=== PATIENT | male | born 1950 | race Caucasian/White ===

== ENCOUNTER 2022-09-02 11:34 | Outpatient (CLI) | payer MEDICARE, SELFPAY ==
--- NOTE | ~2022-09-02 | XR_ITS ---
XR_[id number]_CR 09/02/2022 11:52 Indication: Neck pain. Procedure: 3 views cervical spine Comparison: No prior studies for comparison. Findings: There is disc narrowing at C4-5 and C5-6. There are ventral osteophytes at multiple levels. There is multilevel facet and uncinate hypertrophy. There is no prevertebral soft tissue abnormality . Odontoid process is normal. Lateral masses normally aligned. There is carotid atherosclerosis. Impression: 1: Moderate cervical spondylosis. Reviewed, dictated and finalized at location L. Impression: 1: Moderate cervical spondylosis.
== END 2022-09-02 11:35 | disposition home or self-care (01) ==
LOC: CHSIMG 11:40
PROVIDERS: PCP Family Medicine; Visit Provider Family Medicine
DX: R20.0 Anesthesia of skin (principal); M43.02 Spondylolysis, cervical region
CPT/HCPCS: 72040

== ENCOUNTER 2024-02-29 14:58 | Outpatient (CLI) | payer MEDICARE, SELFPAY ==
--- NOTE | ~2024-02-29 | XR_ITS ---
CHEST RADIOGRAPH CLINICAL HISTORY: PNEUMONIA . COMPARISON: None available TECHNIQUE: Single portable view of the chest. FINDINGS Sternal wires and mediastinal clips are identified, the wires are midline and primarily intact. Coronary artery orifice markers are identified anteriorly. The remainder of the cardiomediastinal silhouette is enlarged, but otherwise unremarkable. Blunting of the left costophrenic sulcus suggesting a small left-sided pleural effusion. The lungs are otherwise clear. Visualized osseous structures and soft tissues are unremarkable. IMPRESSION: Small left-sided pleural effusion without focal infiltrate. Reviewed, dictated and finalized at location A.
== END 2024-02-29 14:59 | disposition home or self-care (01) ==
LOC: CHSIMG 15:02
PROVIDERS: PCP Family Medicine; Visit Provider Family Medicine
DX: J18.9 Pneumonia, unspecified organism (principal); J90 Pleural effusion, not elsewhere classified
CPT/HCPCS: 71046

== ENCOUNTER 2024-06-29 15:16 | Outpatient (CLI) | payer MEDICARE, SELFPAY ==
--- NOTE | ~2024-06-29 | XR_ITS ---
CHEST RADIOGRAPH, PA AND LATERAL CLINICAL HISTORY: Dyspnea,NOCTURAL SOB,HEART SURG X6MO AGO-EFRAÍN [facility] E[facility] SINCE . COMPARISON: 02/29/2024 TECHNIQUE: PA and lateral views of the chest. FINDINGS Sternal wires and mediastinal clips are identified, the wires are midline and intact. The remainder of the cardiomediastinal silhouette is enlarged, unchanged. Interval resolution of the left-sided pleural effusion seen on 02/29/2024. The lungs are now clear. IMPRESSION: Cardiomegaly, without focal infiltrate or effusion. Reviewed, dictated and finalized at location A. STITCH WAISTBAND SETTER
--- OUTSIDE RECORDS SUMMARY | 2024-06-29 15:49 | XMS_ITS | Encounter Summary ---
Author Organization [facility] Address [facility] [place] [address] Care Team Providers Care Chargeback Analyst Name Role Phone Matthew Bell MD Primary Care Provider Aguilar Coppola MD Primary Care Provider [phone] Hay Choudhury MD Unavailable [phone] Layo Greer MD Unavailable [phone] Encounter Details Date Type Department Care Team (Late st Contact Info) Description 10/30/2018 Abstract [facility]FL CONVERSION [address] [place] [address] , Generic ConversionMD Social History Tobacco Use Types Packs/Day Years Used Date Smoking Tobacco: Never Assessed Sex and Gender Information Value Date Recorded Sex Assigned at Not on file Legal Sex Male 5:44 PM SEAFOOD SPECIALIST Gender Identity Male 06/11/2021 7:40 AM SEAFOOD SPECIALIST Sexual Orientation Straight 06/11/2021 7: 40 AM SEAFOOD SPECIALIST documented as of this encounter Plan of Treatment Upcoming Encounters Date Type Department Care Team (Late st Contact Info) Description 07/19/2024 11:30 AM SEAFOOD SPECIALIST Office Visit [facility] [address] [place] [address] Hay Choudhury MD [address] [facility] [address] [address] documented as of this encounter Visit Diagnoses Not on filedocumented in this encounter Additional Health Concerns Infection Onset Date Last Indicated Resolved Time COVID-19 Rule Out 12/08/2023 12/08/2023 12/08/2023 7:08 AM CDT documented as of this encounter Care Teams Chargeback Analyst Relationship Specialty Start Date End Date Matthew Bell MD PCP - General FAMILY PRACTICE 11/20/20 12/07/23 Aguilar Coppola MD [address] [place] [address] PCP - General FAMILY PRACTICE 12/08/23 Hay Choudhury MD [address] [place] [address] [phone] Consulting Physician CLINICAL CARDIAC ELECTROPHYSIOLOGY 12/31/23 Layo Greer MD [address] [place] [phone] Consulting Physician INTERVENTIONAL CARDIOLOGY 02/09/24 documented as of this encounter
--- OUTSIDE RECORDS SUMMARY | 2024-06-29 15:49 | XMS_ITS | Clinical Summary ---
Author Organization [facility] Address [address] [place] [address] Care Team Providers Care Pharmacist Per Diem Name Role Phone Aguilar Coppola MD Primary Care Provider [phone] Hay Choudhury MD Unavailable [phone] Layo Greer MD Unavailable [phone] Allergies No known active allergies Medications tamsulosin (FLOMAX) 0.4 MG CapIndications:p rostate Take 1 capsule (0.4 mg total) by mouth daily. Indications: prostate 02/27/20 22 Active finasteride (PROSCAR) 5 MG tabletIndication s:prostate Take 1 tablet (5 mg total) by mouth daily. Indications: prostate 05/27/19 23 Active clopidogrel (PLAVIX) 75 MG tabletIndication s:anticoagulatio n Take 1 tablet (75 mg total) by mouth daily. Indications: anticoagulation Active atorvastatin (LIPITOR) 40 MG tabletIndication s:cholesterol Take 1 tablet (40 mg total) by mouth nightly at bedtime. 90 tablet 12/22/19 24 Active metoprolol tartrate (LOPRESSOR) 25 MG tabletIndication s:heart Take 0.5 tablets (12.5 mg total) by mouth 2 (two) times daily. 60 tablet 12/22/19 24 Active senna-docusate (SENOKOT-S) 8.6-50 MG tabletIndication s:constipation Take 1 tablet by mouth 2 (two) times daily. Continue as needed for constipation 14 tablet 12/22/19 24 Active traMADol (ULTRAM) 50 MG tabletIndication s:Acute Pain < 7 Day Supply Take 1 tablet (50 mg total) by mouth every 6 (six) hours as needed. Indications: Acute Pain < 7 Day Supply 15 tablet 12/22/19 24 Active metFORMIN (GLUCOPHAGE) 500 MG tabletIndication s:diabetes Take 1 tablet (500 mg total) by mouth 2 (two) times daily with meals. Indications: diabetes 12/22/19 24 Active acetaminophen (TYLENOL) 500 MG tabletIndication s:Pain Take 1 tablet (500 mg total) by mouth every 6 (six) hours as needed for Pain. Indications: Pain 01/02/20 24 Active POLYETHYLENE GLYCOL 3350 ORIndications:Co nstipation Take 17 g by mouth daily as needed (Contipation). Indications: Constipation 01/07/20 24 Active losartan-hydroCH LOROthiazide (HYZAAR) 100-25 MG tablet Take 1 tablet by mouth daily. 12/22/19 24 Active furosemide (LASIX) 40 MG tablet Take 1 tablet (40 mg total) by mouth daily. 90 tablet 3 02/17/20 24 Active VENTOLIN HFA 108 (90 Base) MCG/ACT inhaler Inhale 2 puffs into the lungs every 6 (six) hours as needed. 02/29/20 24 Active YANIRA Freeman, (MEDROL DOSEPAK) 4 MG tablet take by mouth as directed on inside of package 02/29/20 24 Active warfarin (COUMADIN) 3 MG tabletIndication s:Paroxysmal atrial fibrillation ([facility]) Take 1 tablet (3 mg total) by mouth daily. 30 tablet 5 03/04/20 24 Active Active Problems Problem Noted Date Diagnosed Date Mixed hyperlipidemia 01/26/2024 S/P CABG (coronary artery bypass graft) 01/20/20 24 NSTEMI (non-ST elevated myoc ardial infarction) ([facility]) 01/20/2024 Coronary artery disease invo lving [place] coronary artery of [place] heart 01/20/2024 Paroxysmal atrial fibrillation ([facility]) 01/20/2024 Primary hypertension 01/20/2024 Type 2 diabetes mellitus, wi out long-term current use of insulin ([facility]) 01/20/2024 Acute exacerbation of CHF (c ongestive heart failure) ([facility]) 12/08/2023 Social History Tobacco Use Types Packs/Day Years Used Date Smoking Tobacco: Every Day Cigarettes Smokeless Tobacco: Never Tobacco Cessation:Ready to Q uit: Not Asked; Counseling Given: Not Answered Alcohol Use Standard Drinks/Week Comments Not Currently 0 (1 standard drink = 0.6 oz pur e alcohol) OASIS D0700: Social Isolation Answer Da te Recorded Frequency of experiencing loneliness or isolatio n Never 02/11/2024 OASIS A1250: Transportation Answer Date Recorded Lack of Transportation (Medical) No 02/11/2024 Lack of Transportation (Non-Medical) No 02/11/2024 Patient Unable or Declines to Respond No 02/11/2024 OASIS B1300: Health Literacy Answer Miguel A e Recorded Frequency of needing help to read materials from doctor or pharmacy Never 02/11/2024 [facility] Utilities Answer Date Recorded In the past 12 months has e [employer], gas, oil, or water [employer] threatened to shut off services in your home? No 12/08/2023 Humiliation, Afraid, Rape, and Kick questionnair e Answer Date Recorded Within the last year, have y ou been afraid of your partner or ex-partner? No 12/08/2023 Within the last year, have y ou been humiliated or emotionally abused in other ways by your partner or ex-partner? No Within the last year, have y ou been kicked, hit, slapped, or otherwise physically hurt by your partner or ex-partner? No 12/08/2023 Within the last year, have y ou been raped or forced to have any kind of sexual activity by your partner or ex-partner? No 12/08/2023 Overall Financial Resource Strain (CARDIA) Answe r Date Recorded How hard is it for you to pa y for the very basics like food, housing, medical care, and heating? Not hard at all 12/08/2023 Hunger Vital Sign Answer Date Recorded Within the past 12 months, y ou worried that your food would run out before you got the money to buy more. Never true 12/08/19 24 Within the past 12 months, t he food you bought just didn't last and you didn't have money to get more. Never true 12/08/2023 PRAPARE - Transportation Answer Date Re corded In the past 12 months, has l ack of transportation kept you from medical appointments or from getting medications? No 11/22 In the past 12 months, has l ack of transportation kept you from meetings, work, or from getting things needed for daily living? No 12/08/2023 Housing Stability Vital Sign Answer Miguel A e Recorded In the last 12 months, was t here a time when you were not able to pay the mortgage or rent on time? No 12/08/2023 In the past 12 months, how m any times have you moved where you were living? 1 12/08/2023 At any time in the past 12 m [facility], were you homeless or living in a chcf (including now)? No 12/08/2023 Sex and Gender Information Value Date Recorded Sex Assigned at Not on file Legal Sex Male 5:44 PM SALES CONSULTING DIRECTOR Gender Identity Male 06/11/2021 7:40 AM SALES CONSULTING DIRECTOR Sexual Orientation Straight 06/11/2021 7: 40 AM SALES CONSULTING DIRECTOR Last Filed Vital Signs Vital Sign Reading Time Taken Comments Blood Pressure 143/79 03/02/2024 4:00 PM CDT Pulse 98 03/02/2024 2:01 PM CDT Temperature 36.5 C (97.7 F) 03/02/2024 2:01 PM CDT Respiratory Rate 18 03/02/2024 2:01 PM CDT Oxygen Saturation 95% 03/02/2024 4:00 PM CDT Inhaled Oxygen Concentration - - Weight 99.4 kg (219 lb 2 oz) 03/02/2024 2:01 PM CDT Height 172.7 cm (5' 8 ) 03/02/2024 2:01 PM CDT Body Mass Index 33.32 03/02/2024 2:01 PM CDT Plan of Treatment Upcoming Encounters Date Type Department Care Team (Late st Contact Info) Description 07/19/2024 11:30 AM SALES CONSULTING DIRECTOR Office Visit [facility] [address] [place] [address] Hay Choudhury MD [address] [facility] [address] [address] Health Maintenance Due Date Last Done Comments Colorectal Cancer Screening Colonoscopy (10 Years) 1950 Kidney Health Evaluation 1950 Pneumococcal Vaccine: 65+ Ye ars (1 of 2 - PCV) 1956 Diabetes: Retinopathy Eye Exam 1968 Hepatitis C 1968 DTaP, Tdap and Td Vaccines ( 1 - Tdap) 1969 Zoster Vaccines (1 of 2) 2000 RSV Immunization or 60+ Years (1 - Risk 60-74 years 1-dose series) 2010 Annual Medicare Wellness Visit 2015 COVID-19 Vaccine (1 - 2023-2 5 season) 2024 Influenza Adult (#1) 2024 Hemoglobin A1C 06/12/2024 12/11/2023 Lipid Panel 12/10/2024 12/11/2023 AAA SCREENING Completed 05/21/2022 Meningococcal B Vaccine Aged Out No l onger eligible based on patient's age to complete this topic Meningococcal Vaccine Aged Out No benson brianna eligible based on patient's age to complete this topic RSV Immunizations Under 20 Months Aged Out No longer eligible based on patient's age to complete this topic Goals Goal Patient Goal Type Associated Problems Recent Progress Patient-Stated? Author Patient will return to prior living situation and remain independent in ADLs upon discharge from hospital Lifestyle No Adelaide Agosto RN Procedures Procedure Name Priority Date/Time Associated Diagnosis Comments LIPID PANEL Routine 12/11/2023 4:44 AM CDT HEMOGLOBIN, GLYCOSYLATED Routine 12/11/2023 4:[address] ABD+PEL WO CON STAT 05/21/2022 12: 51 PM SALES CONSULTING DIRECTOR from Last 3 Months or Most Recently Relevant to Health Maintenance Results * (ABNORMAL) HEMOGLOBIN, GLYCOSYLATED (12/11/2023 4:44 AM CDT) HGB A1C 6.7(H) <5.7 % 12/11/2023 3:36 PM CDT [facility] ESTIMATED AVG GLUCOSE 146(H) 74 - 114 MG/DL 12/11/2023 3:36 PM CDT [facility] 12/11/2023 4:44 AM CDT Liss Muñoz NP LABORATORY Final Result Performing Organization Address [facility]/ZIP Co de Phone Number [facility] [address] [place] [address], [id number] * LIPID PANEL (12/11/2023 4:44 AM CDT) CHOLESTEROL 165 MG/DL 12/11/2023 2:39 PM CDT [facility] Comment:DESIRABLE: <200 TRIGLYCERIDES 129 MG/DL 12/11/2023 2:39 PM CDT [facility] Comment:<150 NORMAL HDL 66 >39 MG/DL 12/11/2023 2:39 PM CDT [facility] LDL (CALCULATED) 73 MG/DL 12/11/19 24 2:39 PM CDT [facility] Comment:<100 OPTIMAL VLDL CALCULATION 26 MG/DL 12/11/19 24 2:39 PM CDT [facility] Comment:REFERENCE RANGE NOT ESTABLISHED CHOL/HDL RATIO 2.5 12/11/2023 2:39 PM CDT [facility] Comment:REFERENCE RANGE NOT ESTABLISHED LDL/HDL 1.1 12/11/2023 2:39 PM CDT [facility] Comment:REFERENCE RANGE NOT ESTABLISHED NON HDL CHOLESTEROL 99 MG/DL 12/11/2023 2:39 PM CDT [facility] Comment:REFERENCE RANGE NOT ESTABLISHED 12/11/2023 4:44 AM CDT Kee López MD LABORATORY Final Res ult Performing Organization Address [facility]/ZIP Co de Phone Number [facility] [address] [place] [address], [phone] * CT ABD+PEL WO CON (05/21/2022 12:51 PM SALES CONSULTING DIRECTOR) Anatomical Region Laterality Modality Abdomen Computed Tomogra phy 05/21/2022 1:00 PM SALES CONSULTING DIRECTOR Impressions 05/21/2022 1:10 PM SALES CONSULTING DIRECTOR IMPRESSION: 1. Mild left hydronephrosis, likely physiologic renal, ureteric or bladder stones identified. 2. Nonspecific bilateral nephric fat stranding, left greater than right. Complete evaluation of the renal parenchyma is limited on this noncontrast CT. Correlation with urinalysis is recommended to exclude the possibility of pyelonephritis. 3. No CT evidence of bowel obstruction or acute appendicitis. 4. Severe prostatomegaly. 5. Small hiatal hernia. Ordered By: AUGUSTIN DUNLAP Interpreted By: Emmanuel Mckeon MD, 05/21/2022 1:00 PM Narrative 05/21/2022 1:10 PM SALES CONSULTING DIRECTOR PROCEDURE: CT ABD+PEL WO CON HISTORY: Nausea and vomiting. TECHNIQUE: Helical CT of the abdomen and pelvis was performed without intravenous contrast. A dose lowering technique was used for this procedure, which may include, but is not limited to, dose reduction technique, automated exposure control, the use of iterative reconstruction, and ALARA (As Low As Reasonably Achievable) / Image Gently techniques. COMPARISON: The lung screening, 03/14/2022. FINDINGS CT ABDOMEN/PELVIS: Lower thorax: There is subsegmental atelectasis in the lower lobes. The heart is normal in size. Small hiatal hernia. Liver: unremarkable Biliary tree: The gallbladder is present. There is no biliary ductal dilatation. Spleen: The spleen is normal in size. Calcifications are seen in the spleen, consistent with old granulomatous disease. Pancreas: Unremarkable. Adrenal glands: Unremarkable. Kidneys: There is no right hydronephrosis. Mild left hydronephrosis No renal or ureteric stones are seen. There is also bilateral perinephric fat stranding, left greater than right. Lymph nodes: Abdomen: There is no abdominal adenopathy. Pelvis: There is no pelvic adenopathy. Vasculature: There is no abdominal aortic aneurysm. Atherosclerotic calcification is seen. Peritoneum/mesentery/omentum: There is no free fluid or free air. GI tract: There is no bowel obstruction. The appendix normal. There is no bowel bowel wall thickening to suggest acute inflammation. Pelvic urogenital structures:There is a Eubanks catheter in a collapsed bladder. The prostate is markedly enlarged measuring up to 7.5 cm in the transverse dimension Body wall: There are degenerative changes in the spine. No aggressive osseous lesions identified. Limitations: Evaluation of the solid parenchymal organs and vasculature is limited due to lack of intravenous contrast. Calix: (S/I) = series number / image number Procedure Note Emmanuel Mckeon MD - 05/21/2022 PROCEDURE: CT ABD+PEL WO CON HISTORY: Nausea and vomiting. TECHNIQUE: Helical CT of the abdomen and pelvis was performed withoutintravenous contrast. A dose lowering technique was used for this procedure, which may include,but is not limited to, dose reduction technique, automated exposurecontrol, the use of iterative reconstruction, and ALARA (As Low AsReasonably Achievable) / Image Gently techniques. COMPARISON: The lung screening, 03/14/2022. FINDINGS CT ABDOMEN/PELVIS: Lower thorax: There is subsegmental atelectasis in the lower lobes. Theheart is normal in size. Small hiatal hernia. Liver: unremarkable Biliary tree: The gallbladder is present. There is no biliary ductaldilatation. Spleen: The spleen is normal in size. Calcifications are seen in thespleen, consistent with old granulomatous disease. Pancreas: Unremarkable. Adrenal glands: Unremarkable. Kidneys: There is no right hydronephrosis. Mild left hydronephrosis Norenal or ureteric stones are seen. There is also bilateral perinephric fatstranding, left greater than right. Lymph nodes: Abdomen: There is no abdominal adenopathy. Pelvis: There is no pelvic adenopathy. Vasculature: There is no abdominal aortic aneurysm. Atheroscleroticcalcification is seen. Peritoneum/mesentery/omentum: There is no free fluid or free air. GI tract: There is no bowel obstruction. The appendix normal. There is nobowel bowel wall thickening to suggest acute inflammation. Pelvic urogenital structures:There is a Eubanks catheter in a collapsedbladder. The prostate is markedly enlarged measuring up to 7.5 cm in thetransverse dimension Body wall: There are degenerative changes in the spine. No aggressiveosseous lesions identified. Limitations: Evaluation of the solid parenchymal organs and vasculature islimited due to lack of intravenous contrast. Calix: (S/I) = series number / image number IMPRESSION: 1. Mild left hydronephrosis, likely physiologic renal, ureteric orbladder stones identified. 2. Nonspecific bilateral nephric fat stranding, left greater than right.Complete evaluation of the renal parenchyma is limited on this noncontrastCT. Correlation with urinalysis is recommended to exclude the possibilityof pyelonephritis. 3. No CT evidence of bowel obstruction or acute appendicitis. 4. Severe prostatomegaly. 5. Small hiatal hernia. Ordered By: AUGUSTIN DUNLAP Interpreted By: Emmanuel Mckeon MD, 05/21/2022 1:00 PM Augustin Dunlap MD CT Final Result from Last 3 Months or Most Recently Relevant to Health Maintenance Insurance [place] Advance Directives * Full Code (Latest Code Status on File) Date Activated Date Inactivated Comments 12/28/2023 10:31 AM 03/02/2024 1:54 PM * Full Code Date Activated Date Inactivated Comments 12/23/2023 3:28 PM 12/28/2023 8:54 AM * Full Code Date Activated Date Inactivated Comments 12/18/2023 12:06 PM 12/22/2023 6:36 PM * Full Code Date Activated Date Inactivated Comments 12/08/2023 11:23 AM 12/18/2023 12:06 PM Care Teams Pharmacist Per Diem Relationship Specialty Start Date End Date Aguilar Coppola MD [address] [place] [address] PCP - General FAMILY PRACTICE 12/08/23 Hay Choudhury MD [address] [place] [address] [phone] Consulting Physician CLINICAL CARDIAC ELECTROPHYSIOLOGY 12/31/23 Layo Greer MD [address] [place] [phone] Consulting Physician INTERVENTIONAL CARDIOLOGY 02/09/24
--- OUTSIDE RECORDS SUMMARY | 2024-06-29 15:49 | XMS_ITS | Data Portability ---
Author Organization [facility], [address] [facility] Neurology ([place]) Address [address] [place] [address] Care Team Providers Care Detention Sergeant Name Role Phone KRISH TAMAYO Hematology/Oncology DALALS BRIGGS Primary Care Provider JUSTYNA SANTOS Referring Provider Assessment Encounter Date Assessment Date Assessment LastModified by Organization Details LastModified Time 12/29/2023 12/29/2023 HISTORY: This 73-year-old man is seen for evaluation of an elevated white blood count. The patient states that he was found to have an elevated PSA in May 2022 associated with difficulty with urination. He underwent placement of a urinary catheter but a urologist in [place], subsequently developed a urinary tract infection. He has now been placed on self-catheterizati on and his PSA is declining. A CBC was obtained by his primary care physician on July 02, 2022. At that time, white blood count was 16,100, hemoglobin 17, platelet count 568,000 and MCV 89. White blood cell differential revealed neutrophil count of 11,305 with increased myelocytes and metamyelocytes and a normal absolute lymphocyte count. The patient was found to have a JAK2 V617F mutation. No MPL mutation was identified. Bone marrow aspirate and biopsy was felt to be consistent with a chronic myeloproliferative disorder, most likely essential thrombocytosis. Increased storage iron and decreased sideroblastic iron were noted and peripheral blood was felt to be consistent with a chronic myeloproliferative disorder. The patient was begun on hydroxyurea in December 2022. The patient returns today stating he presented to the emergency department at [facility] with increasing shortness of breath in November 2023 and was felt to have congestive heart failure exacerbation and STEMI. He was transferred to [facility], underwent cardiac catheterization, was found to have severe multivessel disease and underwent coronary artery bypass grafting. The patient states his shortness of breath has now improved but he has been placed on warfarin and he notes some oozing of the lower sternotomy incision. He also notes chest soreness surrounding the incision. He has been placed on warfarin following discharge from the hospital and his daughter, who accompanies him to the office visit today, states his INR was 5.8 the day prior to this office visit. He notes decreased appetite, occasional cough but no nausea, vomiting, diarrhea. PAST HISTORY: Surgical Illnesses - Tonsillectomy and adenoidectomy. Medical Illnesses - Hypertension, CVA, diabetes mellitus and cataracts. ALLERGIES - NONE. SOCIAL HISTORY: Patient lives in [place], [place]. He was previously employed as a fork lift mechanic. Tobacco - One pack per day for 40 years. He states he discontinued cigarette smoking one month prior to this office visit. Alcohol - Quit four to five years prior to this office visit. FAMILY HISTORY: Mother of old age. Father of alcohol abuse. Siblings - Two brothers are well, one brother of an overdose, one brother of complications of alcoholism. One sister is well. Children - Two sons and two daughters are well. REVIEW OF SYSTEMS: CONST: No fevers or chills. A 30 pound weight gain. ENT: No difficulty swallowing. RESP: Dyspnea on exertion. CV: No chest pain. : Recent urinary tract infection and urinary retention. MSK: Pain in his feet, worse at night. H/L/IMM: No easy bruising or bleeding. ENDO: No cold or heat intolerance. SKIN: Rash on right forearm. Reviewed past medical history, surgical history, family history, social history. No changes except as noted. PHYSICAL EXAM: CONST: Patient is a male. Overall is in usual health and no acute distress. Performance status is 70%. EYES: No icterus. No evidence of conjunctivitis. ENT: No lesion in the oropharynx. Mucosa normally hydrated. He is edentulous. A 5 mm ulcer is noted on the bridge of his nose. RESP: Chest clear to auscultation. Respiration even and unlabored. CV: There is a median sternotomy incision healing without erythema. There is some bloody drainage from the lower end of the scar. GI: Abdomen soft without mass, tenderness, ascites, or hernia. MSK: Head: Atraumatic. Normocephalic. No edema. SKIN: No bruises, rashes, petechiae on exposed areas. Warm and dry. PSYCH: Appropriate mood and affect. NEURO: No speech difficulty. Strength and sensation are grossly intact. Alert and oriented to person, place, and time. Reviewed pertinent diagnostic tests, lab work, and imaging. These were reviewed with the patient. LABORATORY DATA: The patient did not have bloodwork drawn prior to his appointment today. ASSESSMENT AND PLAN: This 73-year-old man is seen in followup for evaluation of essential thrombocytosis. The patient discontinued hydroxyurea in August 2023 since he felt this was the cause of his shortness of breath. In the future, I believe hydroxyurea should probably be restarted. A CBC, CMP and PT/INR should be drawn today. The patient will return to see me in one month with a CBC, CMP. Disease state, prognosis and plan were reviewed and discussed with the patient. Questions were addressed and patient verbalized understanding. [email or web address] Not available 12/29/2023 11:42:21 02/02/2024 02/02/2024 HISTORY: This 73-year-old man is seen for evaluation of an elevated white blood count. The patient states that he was found to have an elevated PSA in May 2022 associated with difficulty with urination. He underwent placement of a urinary catheter but a urologist in [place], subsequently developed a urinary tract infection. He has now been placed on self-catheterizati on and his PSA is declining. A CBC was obtained by his primary care physician on July 02, 2022. At that time, white blood count was 16,100, hemoglobin 17, platelet count 568,000 and MCV 89. White blood cell differential revealed neutrophil count of 11,305 with increased myelocytes and metamyelocytes and a normal absolute lymphocyte count. The patient was found to have a JAK2 V617F mutation. No MPL mutation was identified. Bone marrow aspirate and biopsy was felt to be consistent with a chronic myeloproliferative disorder, most likely essential thrombocytosis. Increased storage iron and decreased sideroblastic iron were noted and peripheral blood was felt to be consistent with a chronic myeloproliferative disorder. The patient was begun on hydroxyurea in December 2022. The patient returns today stating he has recently undergone coronary artery bypass grafting. He continues to note some dyspnea on exertion but no chest pain other than pain associated with the sternotomy incision. He denies nausea, vomiting, diarrhea. He is currently taking Eliquis but no aspirin. He denies blood clots, headache. His energy is improving. He complaints of some pain in his right leg at the site of the donor vein for his bypass graft. PAST HISTORY: Surgical Illnesses - Tonsillectomy and adenoidectomy, coronary artery bypass grafting. Medical Illnesses - Hypertension, CVA, diabetes mellitus and cataracts, myocardial infarction and coronary artery disease. ALLERGIES - NONE. SOCIAL HISTORY: Patient lives in [place], [place]. He was previously employed as a fork lift mechanic. Tobacco - One pack per day for 40 years. He states he discontinued cigarette smoking one month prior to this office visit. Alcohol - Quit four to five years prior to this office visit. FAMILY HISTORY: Mother of old age. Father of alcohol abuse. Siblings - Two brothers are well, one brother of an overdose, one brother of complications of alcoholism. One sister is well. Children - Two sons and two daughters are well. REVIEW OF SYSTEMS: CONST: No fevers or chills. A 30 pound weight gain. Improving energy. ENT: No difficulty swallowing. RESP: Dyspnea on exertion. CV: Incisional chest pain. : Recent urinary tract infection and urinary retention. MSK: Pain in his right leg. H/L/IMM: No easy bruising or bleeding. ENDO: No cold or heat intolerance. SKIN: Rash on right forearm. Reviewed past medical history, surgical history, family history, social history. No changes except as noted. PHYSICAL EXAM: CONST: Patient is a male. Overall is in usual health and no acute distress. Performance status is 70%. EYES: No icterus. No evidence of conjunctivitis. ENT: No lesion in the oropharynx. Mucosa normally hydrated. He is edentulous. A 5 mm ulcer is noted on the bridge of his nose. RESP: Chest clear to auscultation. Respiration even and unlabored. CV: There is a median sternotomy incision healing without erythema. There is some bloody drainage from the lower end of the scar. GI: Abdomen soft without mass, tenderness, ascites, or hernia. MSK: Head: Atraumatic. Normocephalic. No edema. SKIN: A rash is noted in the left antecubital fossa. PSYCH: Appropriate mood and affect. NEURO: No speech difficulty. Strength and sensation are grossly intact. Alert and oriented to person, place, and time. Reviewed pertinent diagnostic tests, lab work, and imaging. These were reviewed with the patient. LABORATORY DATA: CBC: White blood count 11,200, hemoglobin 13.4, platelet count 526,000. CMP is remarkable for glucose 153. Bloodwork was reviewed with the patient. ASSESSMENT AND PLAN: This 73-year-old man is seen in followup for evaluation of essential thrombocytosis. The patient discontinued hydroxyurea in August 2023 because he felt this was the cause of his shortness of breath, although this was probably related to coronary artery disease. The patient has also discontinued aspirin and is currently maintained on Eliquis. I discussed my recommendations that he eventually restart aspirin and Eliquis, especially since he has a history of a CVA prior to the diagnosis of essential thrombocytosis. He will return to see me in three months with a CBC, CMP. Disease state, prognosis and plan were reviewed and discussed with the patient. Questions were addressed and patient verbalized understanding. [email or web address] Not available 02/03/2024 09:47:54 05/03/2024 05/03/2024 HISTORY: This 74-year-old man is seen for evaluation of an elevated white blood count. The patient states that he was found to have an elevated PSA in May 2022 associated with difficulty with urination. He underwent placement of a urinary catheter but a urologist in [place], subsequently developed a urinary tract infection. He has now been placed on self-catheterizati on and his PSA is declining. A CBC was obtained by his primary care physician on July 02, 2022. At that time, white blood count was 16,100, hemoglobin 17, platelet count 568,000 and MCV 89. White blood cell differential revealed neutrophil count of 11,305 with increased myelocytes and metamyelocytes and a normal absolute lymphocyte count. The patient was found to have a JAK2 V617F mutation. No MPL mutation was identified. Bone marrow aspirate and biopsy was felt to be consistent with a chronic myeloproliferative disorder, most likely essential thrombocytosis. Increased storage iron and decreased sideroblastic iron were noted and peripheral blood was felt to be consistent with a chronic myeloproliferative disorder. The patient was begun on hydroxyurea in December 2022. The patient returns today stating he notes some difficulty sleeping due to shortness of breath. He continues to note dyspnea on exertion but denies chest pain. He has been placed on warfarin and Eliquis has been discontinued. He is no longer taking aspirin or hydroxyurea. He denies bleeding. His appetite is decreased and he states his taste is altered. He denies fevers or sweats. PAST HISTORY: Surgical Illnesses - Tonsillectomy and adenoidectomy, coronary artery bypass grafting. Medical Illnesses - Hypertension, CVA, diabetes mellitus and cataracts, myocardial infarction and coronary artery disease. ALLERGIES - NONE. SOCIAL HISTORY: Patient lives in [place], [place]. He was previously employed as a fork lift mechanic. Tobacco - One pack per day for 40 years. He states he discontinued cigarette smoking one month prior to this office visit. Alcohol - Quit four to five years prior to this office visit. FAMILY HISTORY: Mother of old age. Father of alcohol abuse. Siblings - Two brothers are well, one brother of an overdose, one brother of complications of alcoholism. One sister is well. Children - Two sons and two daughters are well. REVIEW OF SYSTEMS: CONST: No fevers or chills. A 30 pound weight gain. Improving energy. ENT: No difficulty swallowing. RESP: Dyspnea on exertion. CV: Incisional chest pain. : Recent urinary tract infection and urinary retention. MSK: Pain in his right leg. H/L/IMM: No easy bruising or bleeding. ENDO: No cold or heat intolerance. SKIN: Rash on right forearm. Reviewed past medical history, surgical history, family history, social history. No changes except as noted. PHYSICAL EXAM: CONST: Patient is a male. Overall is in usual health and no acute distress. Performance status is 70%. EYES: No icterus. No evidence of conjunctivitis. ENT: No lesion in the oropharynx. Mucosa normally hydrated. He is edentulous. A 5 mm ulcer is noted on the bridge of his nose. RESP: Chest clear to auscultation. Respiration even and unlabored. CV: There is a median sternotomy incision healing without erythema. There is some bloody drainage from the lower end of the scar. GI: Abdomen soft without mass, tenderness, ascites, or hernia. MSK: Head: Atraumatic. Normocephalic. No edema. SKIN: A rash is noted in the left antecubital fossa. PSYCH: Appropriate mood and affect. NEURO: No speech difficulty. Strength and sensation are grossly intact. Alert and oriented to person, place, and time. Reviewed pertinent diagnostic tests, lab work, and imaging. These were reviewed with the patient. LABORATORY DATA: CBC: White blood count 14,400, hemoglobin 13.1, platelet count 1,023,000. Bloodwork was reviewed with the patient. ASSESSMENT AND PLAN: This 74-year-old man is seen in followup for evaluation of essential thrombocytosis. The patient discontinued hydroxyurea in August 2023 because he felt this was the cause of his shortness of breath, although this was probably related to coronary artery disease. The patient has also discontinued aspirin at that time and was placed on Eliquis which was subsequently changed to Coumadin. At the present time, I recommended the patient continue warfarin. His platelet count is greater than 1,000,000 at this time and I recommended he restart hydroxyurea since he falls into a high risk group. I recommended 500 mg p.o. daily and a prescription will be sent to his pharmacy. The patient will return to see me in two months with a CBC, CMP. Disease state, prognosis and plan were reviewed and discussed with the patient. Questions were addressed and patient verbalized understanding. [email or web address] Not available 05/03/2024 20:24:29 Plan of Treatment Reminders Order Date Submit Date Provider Last Modified By Organization Details Last Modified Time Details Appointments Establish ed Patient 15.EST 2024 11:30A M Dr. Krish Tamayo Not available Not available Not available Establish ed Patient 15.EST 2024 12:45P M Dr. Justyna Sánchez Not available Not available Not available Lab CMP, serum or plasma - due 01/18 024 [facility], [address] [place], [address], 01/17/2024 03:13:01 CBC w/ diff - due 01/18 024 [facility], [address] [place], [address], 01/17/2024 03:13:01 CBC w/ diff - due 122023 024 [facility], [address] [place], [address], 06/15/2024 10:37:39 CMP, serum or plasma - due 05/03/242023 024 [facility], [address] [place], [address], 06/15/2024 10:37:39 Referral None recorded. Procedures None recorded. Surgeries None recorded. Imaging None recorded. Medication Orders None recorded. Patient TargetsNo targets recorded. Patient InstructionsNo instructions recorded. Reason for Referral None Reported. Results Created Date Observation Date Name Description Value Unit Range Abnormal Flag Note LastModifiedBy Organization Detail LastModifiedTime 01/07/2009/15/2022 imagi ng/di agnos tic resul t No observ ation record ed. Not Available 01/07/2024 21:26:20 01/07/2009/25/2022 imagi ng/di agnos tic resul t No observ ation record ed. Not Available 01/07/2024 21:26:40 Result Notes None recorded. Problems Name Problem SNOMED Code Status Onset Date Resolution Date Notes Provider Name and Address Organization Details Recorded Time Basal cell carcinoma of nose 867375955 Active 2023 Nereyda Cooper [facility] 4 15:50:49 Chronic myeloprolif erative disorder (clinical) 457887135 [facility] 12:[facility]:38 Type 2 diabetes mellitus 78972686 Active 2023 Viviancj Faustin [facility] 4 12:00:49 Essential hypertensio n 89415948 Active 2023 Vivian Faustin [facility] 4 12:01:02 Ischemic stroke 073653655 Completed 202311/06/2023 Vivian flynn [facility] 12:01:31 Problem Notes None recorded. Procedures Surgical History Date Name Laterality Status Provider Name and Address Organization Details Recorded Time tonsilectom y/adenoids completed Vivian Faustin [facility] 11/06/2023 12:02:27 Imaging Results Imaging Date Name Status LastModified by Organiz ation Details LastModified Time 09/15/2022 imaging/diag nostic result completed Information not available 01/07/2024 21:26:20 09/25/2022 imaging/diag nostic result completed Information not available 01/07/2024 21:26:40 Procedure Notes None recorded. Medical Equipment None Reported. Allergies No known drug allergies Medications Name Sig Start Date Stop Date Status Note LastModified by Organization Details LastModified Time furosemide 40 mg tablet TAKE 1 TABLET BY MOUTH ONCE DAILY active Not Available Not Available No t Available pioglitazon e 15 mg tablet TAKE 1 TABLET BY MOUTH ONCE DAILY 05/03 completed Not Available Not Available Not Available atorvastati n 40 mg tablet TAKE 1 TABLET BY MOUTH ONCE DAILY AT BEDTIME active Not Available Not Available No t Available hydroxyurea 500 mg capsule Take 500 mg by mouth once daily. 2023 active Not Available Not Available Not Avai lable clindamycin HCl 150 mg capsule TAKE 1 CAPSULE BY MOUTH EVERY 8 HOURS active Not Available Not Available No t Available clopidogrel 75 mg tablet TAKE 1 TABLET BY MOUTH ONCE DAILY active Not Available Not Available No t Available tramadol 50 mg tablet TAKE 1 TABLET BY MOUTH EVERY 6 HOURS NEEDED active Not Available Not Available No t Available triamcinolo ne acetonide 0.1 % topical cream APPLY A THIN LAYER OF CREAM TO THE AFFECTED AREA(S) TOPICALLY TWICE DAILY active Not Available Not Available No t Available warfarin 4 mg tablet TAKE 1 TABLET BY MOUTH ONCE DAILY active Not Available Not Available No t Available warfarin 3 mg tablet TAKE 1 TABLET BY MOUTH ONCE DAILY active Not Available Not Available No t Available losartan 100 mg-hydrochl orothiazide 25 mg tablet TAKE 1 TABLET BY MOUTH ONCE DAILY active Not Available Not Available No t Available tamsulosin 0.4 mg capsule TAKE 1 CAPSULE BY MOUTH ONCE DAILY 1/2 HOUR FOLLOWING THE SAME MEAL EACH DAY active Not Available Not Available No t Available warfarin 5 mg tablet TAKE 1 TABLET BY MOUTH ONCE DAILY active Not Available Not Available No t Available furosemide 20 mg tablet TAKE 1 TABLET BY MOUTH ONCE DAILY active Not Available Not Available No t Available methylpredn isolone 4 mg tablets in a dose pack TAKE BY MOUTH DIRECTED ON INSIDE OF PACKAGE active Not Available Not Available No t Available losartan 50 mg-hydrochl orothiazide 12.5 mg tablet TAKE 1 TABLET BY MOUTH ONCE DAILY 12/28 completed Not Available Not Available Not Available pioglitazon e 30 mg tablet TAKE 1 TABLET BY MOUTH ONCE DAILY active Not Available Not Available No t Available finasteride 5 mg tablet TAKE 1 TABLET BY MOUTH ONCE DAILY active Not Available Not Available No t Available Ventolin HFA 90 mcg/actuati on aerosol inhaler INHALE 2 PUFFS BY MOUTH EVERY 6 HOURS NEEDED active Not Available Not Available No t Available metoprolol tartrate 25 mg tablet TAKE 1/2 (ONE-HALF ) TABLET BY MOUTH TWICE DAILY active Not Available Not Available No t Available Eliquis 5 mg tablet TAKE 1 TABLET BY MOUTH TWICE DAILY 05/03 completed Not Available Not Available Not Available Jardiance 10 mg tablet TAKE 1 TABLET BY MOUTH ONCE DAILY 02/01 completed Not Available Not Available Not Available True Metrix Glucose Test Strip USE 1 STRIP TO CHECK GLUCOSE ONCE DAILY active Not Available Not Available No t Available Vitals Date Recorded Heart rate Oxygen saturation Oxygen saturation in Arterial blood by Pulse oximetry Heart rate Respiratory rate Body temperature Body weight Systolic blood pressure Diastolic blood pressure Provider Name and Address Organization Details Last Updated DateTime 4 67 /min 96 % 96 % 67 /min 18 /min 97.7 [degF] 647747. 73 g 138 mm[Hg] 64 mm[Hg] [facility] 4 12:30:34 Date Recorded Heart rate Oxygen saturation Oxygen saturation in Arterial blood by Pulse oximetry Pain severity - 0-10 verbal numeric rating [Score] - Reported Heart rate Respiratory rate Body temperature Body weight Systolic blood pressure Diastolic blood pressure Provider Name and Address Organization Details Last Updated DateTime 4 67 /min 95 % 95 % 5 67 /min 16 /min 97.7 [degF] 833931. 97 g 96 mm[Hg] 54 mm[Hg] [facility] 4 11:06:04 Date Recorded Heart rate Oxygen saturation Oxygen saturation in Arterial blood by Pulse oximetry Pain severity - 0-10 verbal numeric rating [Score] - Reported Respiratory rate Body temperature Body weight Systolic blood pressure Diastolic blood pressure Provider Name and Address Organization Details Last Updated DateTime 4 73 /min 96 % 96 % 3 16 /min 97.3 [degF] 600304. 85 g 131 mm[Hg] 62 mm[Hg] [facility] 4 13:12:52 Date Recorded Heart rate Oxygen saturation Oxygen saturation in Arterial blood by Pulse oximetry Pain severity - 0-10 verbal numeric rating [Score] - Reported Heart rate Respiratory rate Body temperature Body weight Systolic blood pressure Diastolic blood pressure Provider Name and Address Organization Details Last Updated DateTime 4 50 /min 50 % 50 % 0 50 /min 20 /min 97.3 [degF] 838368. 9 g 124 mm[Hg] 62 mm[Hg] [facility] 4 13:07:45 Social History None recorded. Functional Status None recorded. Mental Status None recorded. Family History Relationship Description Onset Age of this Age Resolved Age Notes LastModified by Organization Details LastModified Time Father Alcoholism Not availabl e 11/06/2023 12:01:48 Brother Alcoholism Not availab le 11/06/2023 12:01:54 Brother Overdose Not available 11/06/2023 12:02:09 Medical History No medical history recorded. Past Encounters Encounter ID Performer Location Encounter Start Date Encounter Closed Date Diagnosis/Indication Diagnosis SNOMED-CT Code Diagnosis ICD10 Code Diagnosis Note [id number] Sharona Heaton APRN, [employer] [facility] Specialty Oncology[place]) [address] [place] [address] 11/18/2023 12:25:00 11/18/2023 12:54:35 Chronic myeloproliferative disorder (clinical) 102267161 D47.1 [id number] Krish Tamayo MD [facility] Specialty Oncology/ [place]olog [place]) [address] [place] [address] 12/29/2023 10:28:35 12/29/2023 11:13:51 Chronic myeloproliferative disorder (clinical) 939581433 D47.1 Z79.515 [id number] Krish Tamayo MD [facility] Specialty Oncology/ [place]olog [place]) [address] [place] [address] 02/02/2024 13:11:55 02/02/2024 13:22:22 Chronic myeloproliferative disorder (clinical) 632620027 D47.1 Z79.899 [id number] Krish Tamayo MD [facility] Specialty Oncology/ [place]olog [place]) [address] [place] [address] 05/03/2024 12:53:39 05/03/2024 16:11:34 Chronic myeloproliferative disorder (clinical) 230369078 D47.1 Z79.899 Health Concerns Section Related Observation LastModified by Organization Detai ls LastModified Time None Recorded Concern Status LastModified by Organization Details LastModified Time None Recorded Advance Directives Directive None Recorded Payers Encounter Date Sequence Insurance Name Policy Number Policy Olmos Covered Member ID Olmos Member ID Guarantor Name 11/18/2023 1 [facility] (MEDICARE REPLACEMENT/A DVANTAGE - PPO) [id number] Rudy Herzog [id number] Rudy Herzog 12/29/2023 1 [facility] (MEDICARE REPLACEMENT/A DVANTAGE - PPO) [id number] Rudy Herzog [id number] Rudy Herzog 02/02/2024 1 [facility] (MEDICARE REPLACEMENT/A DVANTAGE - PPO) [id number] Rudy Herzog [id number] Rudy Herzog 05/03/2024 1 [facility] (MEDICARE REPLACEMENT/A DVANTAGE - PPO) [id number] Rudy Herzog [id number] Rudy Herzog Notes Date Note Type Note Provider Name and Address Organization Details Recorded Time 4 text/html Patient returns today for routine 2-month follow-up for history of essential thrombocytosis. He was last seen in the clinic by Dr. Tamayo on September 15, 2023. At that visit, patient admitted he had discontinued his hydroxyurea around July 2023 due to shortness of breath. Dr. Tamayo felt it was unlikely that this was a side effect of the hydroxyurea. However, since platelet count had remained fairly stable off the hydroxyurea, he was agreeable to continue with observation and consider restarting hydroxyurea at a lower dose if necessary. Patient reports he has been feeling fairly stable overall. He does remain active and enjoys being outside and fishing. He feels some of the shortness of breath he had mentioned previously has continued. He did have follow-up with his PCP last month but reports he did not mention this at his visit. He did mention the fatigue he had been experiencing for the last 8 to 9 months but reports his primary did not seem to worry too much about this. However, the concerns today are in regards to his shortness of breath with activity and he reports even at times his arms will feel heavy. He does not experience any chest pain though. Denies any issues with bleeding or blood in stool or urine. He does continue to take his Plavix and aspirin compliantly. Denies any issues with headaches or changes in vision. Background History:This 73-year-old man is seen for evaluation of an elevated white blood count.The patient states that he was found to have an elevated PSA in May 2022 associated with difficulty with urination. He underwent placement of a urinary catheter but a urologist in [place], subsequently developed a urinary tract infection. He has now been placed on self-catheterization and his PSA is declining. A CBC was obtained by his primary care physician on July 02, 2022. At that time, white blood count was 16,100, hemoglobin 17, platelet count 568,000 and MCV 89. White blood cell differential revealed neutrophil count of 11,305 with increased myelocytes and metamyelocytes and a normal absolute lymphocyte count. The patient was found to have a JAK2 V617F mutation. No MPL mutation was identified. Bone marrow aspirate and biopsy was felt to be consistent with a chronic myeloproliferative disorder, most likely essential thrombocytosis. Increased storage iron and decreased sideroblastic iron were noted and peripheral blood was felt to be consistent with a chronic myeloproliferative disorder. The patient was begun on hydroxyurea in December 2022. PAST HISTORY:Surgical Illnesses - Tonsillectomy and adenoidectomy.Medical Illnesses - Hypertension, CVA, diabetes mellitus and cataracts.ALLERGIES - NONE.SOCIAL HISTORY:Patient lives in [place], [place]. He was previously employed as a fork lift mechanic.Tobacco - One pack per day for 40 years. He states he discontinued cigarette smoking one month prior to this office visit.Alcohol - Quit four to five years prior to this office visit.FAMILY HISTORY:Mother of old age.Father of alcohol abuse.Siblings - Two brothers are well, one brother of an overdose, one brother of complications of alcoholism. One sister is well.Children - Two sons and two daughters are well. Reviewed past medical history, surgical history, family history, social history. No changes except as noted. Review of Systems:10-point review of systems is negative except as noted per HPI. Physical Exam:CONST: Alert and oriented. ECOG 0.EYES: No icterus.ENT: Oral mucosa pink and moist.RESP: Breathing appears normal. No use of accessory muscles.CV: Heart regular rate and rhythm without murmur.MSK: Head: Atraumatic. Normocephalic.SKIN: No jaundice.PSYCH: Appropriate mood and affect.NEURO: No speech difficulty. Reviewed pertinent diagnostic tests, lab work, and imaging. These were reviewed with the patient. Assessment and Plan: I reviewed with the patient his evaluation, blood work, and treatment plan. Clinically, he appears stable although he has continued to experience shortness of breath despite hydroxyurea being on hold. CBC is remarkable for stable mild anemia with hemoglobin 12.8, this is standard per his typical baseline. Platelet count has increased at 418, previously 247 about 2 months ago. CMP is remarkable for continued elevation in creatinine, 1.4, previously 1.2. He was instructed to make sure he is drinking plenty of fluids especially while outdoors. He does not currently see a furnace setter but will follow closely with his PCP in regards to this. I advised we could hold off on restarting hydroxyurea although this is something we will continue to monitor closely. If his return in 2 months, platelets continue to rise, we will plan to reinitiate hydroxyurea at a lower dose, perhaps 500 mg once daily versus twice daily. Again, Dr. Tamayo had low suspicion that shortness of breath was related to hydroxyurea use. In fact, this seems to be something that has continued despite hydroxyurea being on hold. Given the concern of his description today especially heaviness in his arms when shortness of breath occurs, I have instructed him to contact his PCP immediately for further workup to rule out other possible etiology especially in regards to his heart. He may need to undergo further testing such as stress test. He will continue his Plavix and baby aspirin at this time. We will forward office note to PCP for review and update. We will tentatively have him return in 2 months for follow-up with CBC, CMP. The patient verbalized understanding of plan of care and will call us in the interim with any further questions or concerns. Sharona Heaton, CNC PROGRAMMER, LAND SURVEYOR ASSISTANT [address] [place] [address], [phone], [facility] 11/18/2023 12:52:29 4 text/html HI Oncology QuestionnaireReported bypatient.Are you currently using any ALTERNATIVE THERAPIESNone Fully active; no restrictionsYes Minimal activity/work restrictionsNo Able to perform all self care but no work activities; up about >50% of the dayNo Limited self-care; in bed/chair > 50% of the dayNo Unable to perform self-care; confined to bed/chairNo Any PHYSICAL HEALTH complaints todayNo Krish Tamayo MD [address] [place] [address], [phone], [facility] 05/06/2024 10:56:30
--- OUTSIDE RECORDS SUMMARY | 2024-06-29 15:49 | XMS_ITS | Encounter Summary ---
Author Organization [facility] System Address [address] [place] [address] Care Team Providers Care Foreign Language Instructor Name Role Phone Aguilar Coppola MD Primary Care Provider [phone] Hay Choudhury MD Unavailable [phone] Layo Greer MD Unavailable [phone] Encounter Details Date Type Department Care Team (Late st Contact Info) Description 12/24/2023 Hospital Follow-up Call [facility] [address] [place] [address] Halima Hinton, RN Social History Tobacco Use Types Packs/Day Years Used Date Smoking Tobacco: Every Day Cigarettes Smokeless Tobacco: Never Alcohol Use Standard Drinks/Week Comments Not Currently 0 (1 standard drink = 0.6 oz pur e alcohol) OASIS D0700: Social Isolation Answer Da te Recorded Frequency of experiencing loneliness or isolatio n Never 12/23/2023 OASIS A1250: Transportation Answer Date Recorded Lack of Transportation (Medical) No 12/23/2023 Lack of Transportation (Non-Medical) No 12/23/2023 Patient Unable or Declines to Respond No 12/23/2023 OASIS B1300: Health Literacy Answer Miguel A e Recorded Frequency of needing help to read materials from doctor or pharmacy Never 12/23/2023 [facility] Utilities Answer Date Recorded In the past 12 months has th e electric, gas, oil, or water company threatened to shut off services in your [...] any time in the past 12 m [facility], were you homeless or living in a [facility]cc (including now)? No 12/08/2023 Sex and Gender Information Value Date Recorded Sex Assigned at Not on file Legal Sex Male 5:44 PM MEAT MANAGER Gender Identity Male 06/11/2021 7:40 AM MEAT MANAGER Sexual Orientation Straight 06/11/2021 7: 40 AM MEAT MANAGER documented as of this encounter Functional Status * Are you deaf or do you have serious difficulty hearing Answer Date of Assessment Author Status No 12/08/2023 11:35 AM Migel Curiel RN Active * Are you blind or do you have serious difficulty seeing, even when wearing glasses? Answer Date of Assessment Author Status No 12/08/2023 11:35 AM Migel Curiel RN Active * Do you have serious difficulty walking or climbing stairs? Answer Date of Assessment Author Status No 12/08/2023 11:35 AM Migel Curiel RN Active * Do you have difficulty dressing or bathing? Answer Date of Assessment Author Status No 12/08/2023 11:35 AM Migel Curiel RN Active * Because of a physical, mental, or emotional condition, do you have difficulty doing errands alone such as visiting a doctor's office or shopping? Answer Date of Assessment Author Status No 12/08/2023 11:35 AM Migel Curiel RN Active documented as of this encounter Mental Status * Because of a physical, mental, or emotional condition, do you have serious difficulty concentrating, remembering, or making decisions? Answer Entry Date Author Status No 12/08/2023 11:35 AM Migel Curiel RN Active documented in this encounter Plan of Treatment Upcoming Encounters Date Type Department Care Team (Late st Contact Info) Description 07/19/2024 11:30 AM MEAT MANAGER [facility] [address] [place] [address] Hay Choudhury MD [address] [place] [address] [place] [id number] documented as of this encounter Goals Goal Patient Goal Type Associated Problems Recent Progress Patient-Stated? Author Patient will return to prior living situation and remain independent in ADLs upon discharge from hospital Lifestyle No Adelaide Agosto RN documented as of this encounter Visit Diagnoses Not on filedocumented in this encounter Care Teams Foreign Language Instructor Relationship Specialty Start Date End Date Aguilar Coppola MD [facility] [place] [address] PCP - General FAMILY PRACTICE 12/08/23 Hay Choudhury MD [address] [place] [address] [address] Consulting Physician CLINICAL CARDIAC ELECTROPHYSIOLOGY 12/31/23 Layo Greer MD [address] [place] [phone] Consulting Physician INTERVENTIONAL CARDIOLOGY 02/09/24 documented as of this encounter
== END 2024-06-29 15:17 | disposition home or self-care (01) ==
LOC: CHSIMG 15:17
PROVIDERS: PCP Family Medicine; Visit Provider Family Medicine
DX: R06.00 Dyspnea, unspecified (principal); I51.7 Cardiomegaly
CPT/HCPCS: 71046